=== PATIENT | female | born 2000 | race Caucasian/White ===

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

== ENCOUNTER 2022-12-18 20:59 | Emergency (ER) | payer OTHER ==
[~2022-12-18] VITALS: Ht 160 cm; Wt 56.7 kg
[~2022-12-18 20:59] MED LIST changes: +CEPH500 PO; +IBUP600 PO; +ONDA4ODT MM
[2022-12-18 21:23] VITALS: BP 131/88
== END 2022-12-18 22:28 | disposition home or self-care (01) ==
LOC: ER 20:59
DX: G43.909 Migraine, unspecified, not intractable, without status migrainosus (principal); Z91.018 Allergy to other foods
CPT/HCPCS: A9270

== ENCOUNTER 2023-08-21 19:12 | Emergency (ER) | payer OTHER ==
[~2023-08-21] VITALS: Ht 162.6 cm; Wt 54.4 kg
[2023-08-21 21:38] LABS: BASOPHILS ABSOLUTE AUTO 0.11 K/mm3 (0.00-0.23); BASOPHILS PERCENT AUTO 1 % (0-2); EOSINOPHILS ABSOLUTE AUTO 0.21 K/mm3 (0.00-0.68); EOSINOPHILS PERCENT AUTO 1 % (0-6); Hematocrit 40.4 % (33.0-51.0); Hemoglobin 13.5 g/dL (11.5-16.0); IMMATURE GRAN ABSOLUTE AUTO 0.06 K/mm3 (0.00-0.10); IMMATURE GRAN PERCENT AUTO 0 % (0-1); LYMPHOCYTES ABSOLUTE AUTO 2.21 K/mm3 (0.84-5.20); LYMPHOCYTES PERCENT AUTO 13 % (21-46); MONOCYTES ABSOLUTE AUTO 0.73 K/mm3 (0.16-1.47); MONOCYTES PERCENT AUTO 4 % (4-13); Mean Corpuscular HGB 29.5 pg (26.0-34.0); Mean Corpuscular HGB Conc 33.4 g/dL (31.5-36.5); Mean Corpuscular Volume 88 fL (80-100); Mean Platelet Volume 9.9 fL (9.1-12.4); NEUTROPHILS PERCENT AUTO 81 % (41-73); Platelet Count 354 K/mm3 (150-400); RDW Coefficient Variation 13.7 % (11.7-14.2); RDW Standard Deviation 44.4 fL (35.1-46.3); Red Blood Cell Count 4.57 M/mm3 (3.80-5.20); White Blood Cell Count 17.02 K/mm3 (4.00-11.30)
[2023-08-21 21:50] LABS: Albumin, Blood 4.1 g/dL (3.4-5.0); Albumin/Globulin Ratio 1.1 (0.8-1.8); Bilirubin, Total 0.4 mg/dL (0.1-1.0); Bun/Creatinine Ratio 13.6 (12.0-20.0); Calcium, Blood 9.7 mg/dL (8.5-10.1); Creatinine, Blood 0.66 mg/dL (0.40-1.00); Globulin, Blood 3.8 g/dL (2.2-4.0); Potassium, Blood 3.2 mmol/L (3.5-5.5); Total Protein, Blood 7.9 g/dL (6.4-8.2)
[2023-08-21 22:30] VITALS: BP 113/83
[2023-08-21] MEDS ORDERED: Dexamethasone Sod Phos 10 MG/ML 1ML VIAL IV ONE (22:35)
[2023-08-21] MEDS ORDERED: DiphenhydrAMINE HCl 50 MG/ML 1ML Vial IV ONE (22:35)
[2023-08-21] MEDS ORDERED: Ketorolac Tromethamine 30mg Vial IV ONE (22:35)
[2023-08-21] MEDS ORDERED: LORazepam 1 MG Tab PO ONE (23:00)
[2023-08-21] MEDS ORDERED: DiphenhydrAMINE HCl 50 MG Cap PO ONE (23:00)
== END 2023-08-21 23:05 | disposition home or self-care (01) ==
LOC: ER 19:12
PROVIDERS: Emergency Medicine
DX: G44.209 Tension-type headache, unspecified, not intractable (principal); J32.9 Chronic sinusitis, unspecified; F41.9 Anxiety disorder, unspecified; Z91.018 Allergy to other foods
CPT/HCPCS: 80053; 85025; 96374; 99283-25; A9270; J1100; J1200; J1885

== ENCOUNTER → 2024-04-08 | Outpatient (CLI) | payer OTHER ==
[~2024-04-08] MED LIST changes: +Cetirizine HCl10 MG PO; +IMITREX25 MG PO; +OMEP20ER PO
== END ==
LOC: LAB SHORT 14:37 → LAB 14:37
DX: N39.0 Urinary tract infection, site not specified (principal)
CPT/HCPCS: 87086

== ENCOUNTER 2024-04-24 23:47 | Emergency (ER) | payer OTHER ==
[~2024-04-24] VITALS: Ht 162.6 cm; Wt 56.7 kg
[2024-04-24 23:59] VITALS: BP 117/80
[2024-04-25] MEDS ORDERED: Dexamethasone Sod Phos 10 MG/ML 1ML VIAL PO ONE (00:50)
[2024-04-25] MEDS ORDERED: DiphenhydrAMINE HCL 25 MG Cap PO ONE (00:50)
[2024-04-25] MEDS ORDERED: Diazepam 2 MG Tab PO ONE (00:50)
[2024-04-25] MEDS ORDERED: DIAZ2 PO (00:50)
== END 2024-04-25 01:09 | disposition home or self-care (01) ==
LOC: ER 23:47
DX: G43.909 Migraine, unspecified, not intractable, without status migrainosus (principal); Z79.899 Other long term (current) drug therapy; Z91.018 Allergy to other foods; Z88.5 Allergy status to narcotic agent
CPT/HCPCS: 93005; 93010; 99284-25; A9270; J1100

== ENCOUNTER 2024-06-13 00:51 | Emergency (ER) | payer OTHER ==
[~2024-06-13] VITALS: Ht 162.6 cm; Wt 59.0 kg
[~2024-06-13 00:51] MED LIST changes: +DIAZ2 PO
[2024-06-13] MEDS ORDERED: PredniSONE 20 MG Tab PO ONE (01:15)
[2024-06-13] MEDS ORDERED: DiphenhydrAMINE HCl 50 MG/ML 1ML Vial IM ONE (01:15)
[2024-06-13] MEDS ORDERED: Ipratropium/Albuterol SulF 2.5-0.5MG/3 ML Amp INH ONE (01:15)
[2024-06-13] MEDS ORDERED: Famotidine 20 MG Tab PO ONE (01:15)
[2024-06-13] MEDS ORDERED: diphenhydrAMINE HCl 12.5 MG/5 ML 5MLUDC (Alcohol/Dye Free) PO ONE (01:35)
[2024-06-13] MEDS ORDERED: DiphenhydrAMINE HCL 25 MG Cap PO ONE (01:40)
[2024-06-13 01:45] VITALS: BP 136/87
[2024-06-13] MEDS ORDERED: EPIPEN0.3 MG/0.3 IM (01:55)
[2024-06-13] MEDS ORDERED: BENADRYL25 M1 PO (01:55)
[2024-06-13] MEDS ORDERED: PRED20 PO (01:55)
== END 2024-06-13 02:19 | disposition home or self-care (01) ==
LOC: ER 00:51
DX: T78.1XXA Other adverse food reactions, not elsewhere classified, initial encounter (principal); J45.909 Unspecified asthma, uncomplicated; Z79.899 Other long term (current) drug therapy; Z91.018 Allergy to other foods; Z88.5 Allergy status to narcotic agent
CPT/HCPCS: 71046; 94640; 94664; 99283-25; A9270; J7512

== ENCOUNTER 2024-09-22 21:07 | Emergency (ER) | payer OTHER ==
[~2024-09-22] VITALS: Ht 157.5 cm; Wt 54.4 kg
[~2024-09-22 21:07] MED LIST changes: +BENADRYL25 M1 PO; +EPIPEN0.3 MG/0.3 IM; +PRED20 PO
[2024-09-22 21:20] VITALS: BP 137/79
[2024-09-22] MEDS ORDERED: NS 1,000 ML IV SCH (21:30)
[2024-09-22 22:00] LABS: Source, Urine Clean Catch
[2024-09-22 22:09] LABS: Appearance, Urine Clear (Clear); Bilirubin, Urine Neg (Neg); Blood, Urine Neg (Neg); Color, Urine Yellow (P-Yellow); Glucose Qualitative, Urine Neg (Neg); Ketones, Urine 4+ (Neg); Leukocyte Esterase, Urine 1+ (Neg); Nitrite, Urine Neg (Neg); Protein, Urine 1+ (Neg); Specific Gravity, Urine 1.015 (1.003-1.022); Urobilinogen, Urine NORM (Normal); pH, Urine 6.5 (5.0-8.0)
[2024-09-22] MEDS ORDERED: Metoclopramide HCl 10 MG Tab PO ONE (22:15)
[2024-09-22] MEDS ORDERED: Ibuprofen 600 MG Tab PO ONE (22:15)
[2024-09-22 22:20] LABS: Bacteria Mod /hpf; Mucus Light (0-Heavy); Red Blood Cells, Urine Not Seen /hpf (0-2); Squamous Epithelial Cells Rare /hpf (Few)
[2024-09-22] MEDS ORDERED: METO10 PO (22:28)
[2024-09-23] MEDS ORDERED: METO10 PO (16:35)
== END 2024-09-22 22:33 | disposition home or self-care (01) ==
LOC: ER 21:07
PROVIDERS: Student in an Organized Health Care Education/Training Program
DX: G43.909 Migraine, unspecified, not intractable, without status migrainosus (principal); J45.909 Unspecified asthma, uncomplicated; Z88.5 Allergy status to narcotic agent; Z91.018 Allergy to other foods; Z53.29 Procedure and treatment not carried out because of patient's decision for other reasons
CPT/HCPCS: 81001; 81025; 87086; 99283; A9270; J7030

== ENCOUNTER 2024-10-12 19:16 | Emergency (ER) | payer OTHER ==
[~2024-10-12] VITALS: Ht 162.6 cm; Wt 56.7 kg
[~2024-10-12 19:16] MED LIST changes: +METO10 PO
[2024-10-12] MEDS ORDERED: METO10 PO (21:15)
[2024-10-12] MEDS ORDERED: PROM25 PO (21:15)
[2024-10-12] MEDS ORDERED: Promethazine HCl 25 MG Tab PO ONE (21:15)
[2024-10-12 21:24] VITALS: BP 142/79
== END 2024-10-12 21:24 | disposition home or self-care (01) ==
LOC: ER 19:16
DX: R07.1 Chest pain on breathing (principal); G43.909 Migraine, unspecified, not intractable, without status migrainosus; J45.909 Unspecified asthma, uncomplicated; Z76.0 Encounter for issue of repeat prescription; Z88.5 Allergy status to narcotic agent; Z91.018 Allergy to other foods; Z79.899 Other long term (current) drug therapy
CPT/HCPCS: 71046; 93005; 93010; 99284-25; A9270

== ENCOUNTER 2024-10-13 22:05 | Emergency (ER) | payer OTHER ==
[~2024-10-13] VITALS: Ht 162.6 cm; Wt 56.7 kg
[~2024-10-13 22:05] MED LIST changes: +PROM25 PO
[2024-10-13 22:11] VITALS: BP 136/83
[2024-10-14] MEDS ORDERED: RX Prepack Albuterol 1 PREPACK/6.7 GM INH UD ONE (00:10)
== END 2024-10-14 00:43 | disposition home or self-care (01) ==
LOC: ER 22:05
DX: J45.901 Unspecified asthma with (acute) exacerbation (principal); J40 Bronchitis, not specified as acute or chronic; Z91.018 Allergy to other foods; Z88.5 Allergy status to narcotic agent; F17.200 Nicotine dependence, unspecified, uncomplicated
CPT/HCPCS: 93005; 93010; 99284-25; A9270

== ENCOUNTER 2024-10-21 13:19 | Emergency (ER) | payer OTHER ==
[~2024-10-21] VITALS: Ht 160 cm; Wt 56.7 kg
[2024-10-21] MEDS ORDERED: NS 1,000 ML IV SCH (14:10)
[2024-10-21] MEDS ORDERED: Haloperidol Lactate Inj. 5 MG/ML Injection IV ONE (14:10)
[2024-10-21 14:32] VITALS: BP 130/98
[2024-10-21] MEDS ORDERED: LORazepam 2 MG/ML 1ML Injection IV ONE (14:35)
[2024-10-21] MEDS ORDERED: LORazepam 1 MG Tab PO ONE (15:05)
[2024-10-21 15:36] LABS: Source, Urine Clean Catch
[2024-10-21 15:46] LABS: Appearance, Urine Clear (Clear); Bilirubin, Urine Neg (Neg); Blood, Urine 1+ (Neg); Glucose Qualitative, Urine 4+ (Neg); Ketones, Urine 2+ (Neg); Leukocyte Esterase, Urine Neg (Neg); Nitrite, Urine Neg (Neg); Protein, Urine 2+ (Neg); Specific Gravity, Urine 1.015 (1.003-1.022); Urobilinogen, Urine NORM (Normal)
[2024-10-21 15:52] LABS: Color, Urine Pale Yellow (P-Yellow)
[2024-10-21 15:54] LABS: Bacteria Few /hpf; Squamous Epithelial Cells Few /hpf (Few)
[2024-10-21] MEDS ORDERED: DiphenhydrAMINE HCl 50 MG/ML 1ML Vial IV ONE (16:20)
[2024-10-21 16:38] LABS: BASOPHILS ABSOLUTE AUTO 0.05 K/mm3 (0.00-0.23); BASOPHILS PERCENT AUTO 0 % (0-2); EOSINOPHILS ABSOLUTE AUTO 0.06 K/mm3 (0.00-0.68); EOSINOPHILS PERCENT AUTO 1 % (0-6); Hematocrit 38.6 % (33.0-51.0); Hemoglobin 13.1 g/dL (11.5-16.0); IMMATURE GRAN ABSOLUTE AUTO 0.09 K/mm3 (0.00-0.10); IMMATURE GRAN PERCENT AUTO 1 % (0-1); LYMPHOCYTES ABSOLUTE AUTO 2.71 K/mm3 (0.84-5.20); LYMPHOCYTES PERCENT AUTO 21 % (21-46); MONOCYTES ABSOLUTE AUTO 0.74 K/mm3 (0.16-1.47); MONOCYTES PERCENT AUTO 6 % (4-13); Mean Corpuscular HGB 29.9 pg (26.0-34.0); Mean Corpuscular HGB Conc 33.9 g/dL (31.5-36.5); Mean Corpuscular Volume 88 fL (80-100); Mean Platelet Volume 9.5 fL (9.1-12.4); NEUTROPHILS ABSOLUTE AUTO 9.14 K/mm3 (1.96-9.15); NEUTROPHILS PERCENT AUTO 71 % (41-73); Platelet Count 368 K/mm3 (150-400); RDW Coefficient Variation 13.3 % (11.7-14.2); RDW Standard Deviation 43.6 fL (35.1-46.3); Red Blood Cell Count 4.38 M/mm3 (3.80-5.20); White Blood Cell Count 12.79 K/mm3 (4.00-11.30)
[2024-10-21 17:09] LABS: Albumin, Blood 3.8 g/dL (3.4-5.0); Albumin/Globulin Ratio 1.2 (0.8-1.8); Bilirubin, Total 0.2 mg/dL (0.1-1.0); Bun/Creatinine Ratio 21.5 (12.0-20.0); Calcium, Blood 8.9 mg/dL (8.5-10.1); Creatinine, Blood 0.65 mg/dL (0.40-1.00); Globulin, Blood 3.1 g/dL (2.2-4.0); Magnesium, Blood 1.9 mg/dL (1.6-2.4); Potassium, Blood 3.3 mmol/L (3.5-5.5); Total Protein, Blood 6.9 g/dL (6.4-8.2)
[2024-10-21] MEDS ORDERED: ONDA4ODT MM (19:02)
== END 2024-10-21 19:17 | disposition home or self-care (01) ==
LOC: ER 13:19
PROVIDERS: Emergency Medicine
DX: R11.2 Nausea with vomiting, unspecified (principal); F12.90 Cannabis use, unspecified, uncomplicated; R10.9 Unspecified abdominal pain; F41.9 Anxiety disorder, unspecified; G43.909 Migraine, unspecified, not intractable, without status migrainosus; Z91.018 Allergy to other foods; Z88.5 Allergy status to narcotic agent
CPT/HCPCS: 71046; 80053; 81001; 81025; 83690; 83735; 85025; 96361; 96374; 96375; 99285-25; A9270; J1200; J1630; J2060; J7030

== ENCOUNTER 2024-10-26 13:43 | Emergency (ER) | payer OTHER ==
[~2024-10-26] VITALS: Ht 160 cm; Wt 54.4 kg
[2024-10-26 13:52] VITALS: BP 156/89
== END 2024-10-26 14:24 | disposition left against medical advice (07) ==
LOC: ER 13:43
DX: R06.02 Shortness of breath (principal); Z53.21 Procedure and treatment not carried out due to patient leaving prior to being seen by health care provider
CPT/HCPCS: 71046; 93005; 93010; 99282-25